=== PATIENT | male | born 1940 | race Caucasian/White ===

== ENCOUNTER → 2016-11-12 | Outpatient (CLI) | payer OTHER ==
--- NOTE | 2016-11-12 08:31 | US ---
Ultrasound Abdomen Retroperitoneal, Limited History: CAD,ABDOMINAL Bruit, neck PAIN Technique: Transabdominal longitudinal and transverse ultrasound imaging of the abdominal aorta. Findings: Proximal aorta measures 2.3 cm (AP) x 2.8 cm (transverse) Mid aorta measures 1.6 cm (AP) x 2 cm (transverse) Distal aorta measures 1.5 cm (AP) x 1.4 cm (transverse) Right common iliac artery measures 0.8 cm (AP) x 1 cm (transverse) Left common iliac artery measures 0.9 cm (AP) x 1 cm (transverse) Moderate atherosclerotic plaque in the abdominal aorta and aortoiliac bifurcations without aneurysm. Impression: Atherosclerotic abdominal aorta without aneurysm.
== END ==
LOC: CIMAGING 07:41
PROVIDERS: ATTEND Internal Medicine Cardiovascular Disease
DX: I70.0 Atherosclerosis of aorta (principal); I25.10 Atherosclerotic heart disease of native coronary artery without angina pectoris; M54.2 Cervicalgia